=== PATIENT | male | born 1985 | race Two or more races ===

== ENCOUNTER 2018-08-31 12:05 | Day surgery (SDC) | payer OTHER ==
[2018-08-31] MEDS ORDERED: PROPOFOL 20 ML (13:36)
[2018-08-31] MEDS ORDERED: FENTAnyl 50 MCG/ML VIAL (13:36)
== END 2018-08-31 15:07 | disposition home or self-care (01) ==
LOC: GIL 12:05
DX: R19.4 Change in bowel habit (principal); K29.50 Unspecified chronic gastritis without bleeding; K64.8 Other hemorrhoids
CPT/HCPCS: 43239; 88305; 88312